=== PATIENT | female | born 1950 | race Caucasian/White ===

== ENCOUNTER 2022-07-17 11:15 | Emergency (ER) | payer OTHER, MEDICAID ==
[~2022-07-17] VITALS: Ht 160 cm; Wt 54.4 kg
--- NOTE | 2022-07-17 11:15 | NUR ---
Patient triaged and placed in waiting room. VSS and patient appears in no acute distress at this time. Accompanied by self, awaiting available bed, and MD notified of need for MSE.
--- NOTE | 2022-07-17 11:17 | NUR ---
BIB EMS FROM [facility] WITH C/O MECHANICAL FALL. PT'S FALL WAS UNWITNESSED. PT STATES SHE FELL 2 NIGHTS AGO AND LANDED ON HER LEFT FOOT. ON ASSESSMENT, PT'S FOOT IS BURISED AND SWOLLEN AND PAINFUL TO THE TOUCH. PT STATES HER PAIN IS 9/10. HX - CARINOMA OF THE UPPER LIPS, HTN, 2 CVAS - BALANCE ISSUES, BEHAVIORAL ISSUES (ANXIETY, DEPRESSION). NO KNOWN ALLERGIES. PT IS AAX04, VSS, NAD, BREATHING IS EVEN AND UNLABORED, PT ON HEEL PRICKER SHOWING NSR. SAFETY PRECAUTIONS AND COMFORT MEASURES IN PLACE. PENDING MD DAILEY AND ORDERS.
--- NOTE | 2022-07-17 11:18 | NUR ---
Placed in room 8. Placed on order puller, blood pressure machine and pulse oximeter. To gown for exam. Side rails up. Report given to Aziza SOARES.
[2022-07-17 11:28] VITALS: BP_SYST 111
--- NOTE | 2022-07-17 11:42 | NUR ---
Patient brought in by ambulance from long-term facility ([facility]) post fall x 2d ago. Chief Complaint, pain, swelling, and bruising to left foot, skin intact. Patient reports tripped and fell on the way to the restroom in the middle of the night. Denies pain in any other location. Patient unable to put weight on foot. Patient reports pain of 8/10.
--- NOTE | 2022-07-17 11:55 | NUR ---
ER at bedside examining patient.
--- NOTE | 2022-07-17 12:23 | NUR ---
Pt complains of pain 8/10 ice pack applied to reduce inflammation. MD notified.
[2022-07-17] MEDS ORDERED: HYDROcodone/ACETAMIN 5-325 MG TAB (NORCO/ VICODIN) PO ONE (13:00)
--- NOTE | 2022-07-17 13:01 | NUR ---
RODGER Jason administered the [facility] order at 1301.
[2022-07-17] MEDS ORDERED: CEPH-548 PO (13:36)
[2022-07-17] MEDS ORDERED: IBUP-1968 PO (13:36)
--- NOTE | 2022-07-17 17:27 | NUR ---
Patient given written and verbal discharge instructions and verbalizes understanding. ER MD Vargas discussed with patient the results and treatment provided. Patient in stable condition. ID arm band removed. Rx of Cephalexin and Ibuprofen given. Patient educated on pain management and to follow up with PMD. Opportunity for questions provided and answered. Medication side effect fact sheet provided. Patient stable, and taken back to [facility] via ambulance transport.
[2022-07-17 17:30] VITALS: BP_SYST 119
== END 2022-07-17 17:27 | disposition home or self-care (01) ==
LOC: SED 11:15
DX: S93.602A Unspecified sprain of left foot, initial encounter (principal); I10 Essential (primary) hypertension; Z79.899 Other long term (current) drug therapy; W01.0XXA Fall on same level from slipping, tripping and stumbling without subsequent striking against object, initial encounter; Y93.89 Activity, other specified; Y92.89 Other specified places as the place of occurrence of the external cause; Y99.8 Other external cause status
CPT/HCPCS: 99283

== ENCOUNTER 2023-02-22 13:57 | Emergency (ER) | payer OTHER, MEDICAID ==
[~2023-02-22] VITALS: Ht 152.4 cm; Wt 52.2 kg
[~2023-02-22 13:57] MED LIST: CEPH-548 PO; IBUP-1968 PO
[2023-02-22 14:40] VITALS: BP_SYST 132; PULSE 62; RESP 14; TEMP 96; O2SAT 96
[2023-02-22] MEDS ORDERED: HYDROcodone/ACETAMIN 5-325 MG TAB (NORCO/ VICODIN) PO ONE (14:45)
[2023-02-22] MEDS ORDERED: LIDOCAINE VISCOUS 2%, 15 ML UDC MM ONE (14:45)
== END 2023-02-22 15:30 | disposition left against medical advice (07) ==
LOC: SED 13:57
DX: J02.9 Acute pharyngitis, unspecified (principal); K13.79 Other lesions of oral mucosa; I10 Essential (primary) hypertension; Z85.818 Personal history of malignant neoplasm of other sites of lip, oral cavity, and pharynx; Z79.899 Other long term (current) drug therapy
CPT/HCPCS: 99281